=== PATIENT | female | born 1995 | race Caucasian/White ===

== ENCOUNTER 2020-11-09 08:49 | Outpatient (REF) | payer OTHER, SELFPAY ==
[2020-11-09 09:47] LABS: MANUAL DIFF FLAG NO
[2020-11-09 09:52] LABS: Basophils Absolute Auto 0.1 X10*3/uL (0.0-0.2); Basophils Percent Auto 0.8 % (0-2); Eosinophils Absolute Auto 0.2 X10*3/uL (0.0-0.4); Eosinophils Percent Auto 2.2 % (0-4); Hematocrit 39.8 % (37-47); Hemoglobin 12.1 g/dl (12.0-16.0); Imm Gran Abs Auto 0.01 X10*3/uL (0.00-0.03); Imm Gran Pct Auto 0.1 % (0.0-0.4); Lymphocytes Absolute Auto 2.4 X10*3/uL (1.2-4.9); Lymphocytes Percent Auto 32.1 % (20-40); Mean Corpuscular HGB Conc 30.4 g/dl (31.0-35.0); Mean Corpuscular Hemoglobin 26.7 pg (27.0-33.0); Mean Corpuscular Volume 87.9 fL (80-98); Mean Platelet Volume 9.4 fL (9.4-12.3); Monocytes Absolute Auto 0.7 X10*3/uL (0.1-1.2); Monocytes Percent Auto 9.7 % (2-11); Neutrophils Absolute Auto 4.2 X10*3/uL (2.0-8.3); Neutrophils Percent Auto 55.1 % (45-73); Platelet Count 412 X10*3/uL (160-400); Red Blood Count 4.53 X10*6/uL (4.20-5.50); Red Cell Distribution Width 13.3 % (11.0-16.0); White Blood Count 7.6 X10*3/uL (4.8-10.8)
[2020-11-09 10:22] LABS: Alanine Aminotransferase 9 U/L (0-31); Albumin Level 3.5 g/dL (3.5-5.0); Alkaline Phosphatase 46 U/L (39-117); Anion Gap 12 (12-20); Aspartate Amino Transferase 16 U/L (5-31); Bilirubin Direct < 0.2 mg/dL (0.0-0.5); Bilirubin Total 0.3 mg/dL (0.0-1.0); Blood Urea Nitrogen 14 mg/dL (9-16); Carbon Dioxide 28 mmol/L (22-29); Chloride 104 mmol/L (96-108); Estimated Glomerular Filt Rate > 60; Glucose Random 101 mg/dL (60-115); Potassium 4.8 mmol/L (3.3-5.1); Sodium 139 mmol/L (135-145); Total Protein 6.1 g/dL (6.5-8.0)
== END 2020-11-09 08:50 | disposition home or self-care (01) ==
LOC: HO.LAB 08:49
PROVIDERS: Visit Provider Internal Medicine
DX: K50.10 Crohn's disease of large intestine without complications (principal)
CPT/HCPCS: 36415; 80051; 80076; 82565; 82947; 84520; 85025

== ENCOUNTER 2023-08-14 06:26 | Day surgery (SDC) | payer OTHER, SELFPAY ==
[2023-08-12 10:14] VITALS: BMI 24.8
--- NOTE | 2023-08-13 08:19 | P.CONAN_ITS ---
Documented by User: Najma Bosch NP 08/13/23 08:19 HPI - Anesthesia Eval Consult details Narrative: 28yo F for Colonoscopy [facility] Past Medical History Medical History (Updated 08/12/23 @ 10:15 by Lissette Short RN) Iron deficiency anemia Crohn's colitis Surgical History Surgical History (Updated 08/12/23 @ 10:15 by Lissette Short RN) H/O colonoscopy Social History Social History Patient Tobacco Use Status: Never used Tobacco Are you DNR?: No Advance Directives: No Advance Directives Information Provided: Yes Patient : No FDLMP: 2 weeks ago Meds Allergies Allergy/AdvReac Type Severity Reaction Status Date / Time No Known Allergies Allergy Unverified 08/10/23 23:38 Home Medications Medication Instructions Recorded Confirmed Last Taken Type balsalazide 750 mg capsule 750 mg PO BID 08/12/23 08/12/23 Unknown History cyanocobalamin (vitamin B-12) 1,000 mcg PO DAILY 08/12/23 08/12/23 Unknown History 1,000 mcg tablet (Vitamin B-12) ferrous sulfate 325 mg (65 mg 325 mg PO DAILY 08/12/23 08/12/23 08/07/23 History iron) tablet norgestimate-ethinyl estradiol 1 tab PO DAILY 08/12/23 08/12/23 Unknown History 0.18 mg/0.215mg/0.25mg-35 mcg(28)tablet (Tri-Estarylla) Exam Height,Weight and Vital Signs: Height 5 ft 5 in Weight 67.585 kg Assessment and Plan Assessment Anesthesia Assessment: Chart Reviewed Documented by User: Sorin Regan MD 08/14/23 07:34 [facility] Past Medical History Medical History (Updated 08/12/23 @ 10:15 by Lissette Short RN) Iron deficiency anemia Crohn's colitis Patient : No Family History Family history of problems with anesthesia: No Surgical History Surgical History (Updated 08/12/23 @ 10:15 by Lissette Short RN) H/O colonoscopy History of Problems with Anesthesia: No Social History Social History Patient Tobacco Use Status: Never used Tobacco Are you DNR?: No Advance Directives: No Advance Directives Information Provided: Yes Patient : No FDLMP: 2 weeks ago Meds Allergies Allergy/AdvReac Type Severity Reaction Status Date / Time No Known Allergies Allergy Unverified 08/10/23 23:38 Home Medications Medication Instructions Recorded Confirmed Last Taken Type balsalazide 750 mg capsule 750 mg PO BID 08/12/23 08/12/23 Unknown History cyanocobalamin (vitamin B-12) 1,000 mcg PO DAILY 08/12/23 08/12/23 Unknown History 1,000 mcg tablet (Vitamin B-12) ferrous sulfate 325 mg (65 mg 325 mg PO DAILY 08/12/23 08/12/23 08/07/23 History iron) tablet norgestimate-ethinyl estradiol 1 tab PO DAILY 08/12/23 08/12/23 Unknown History 0.18 mg/0.215mg/0.25mg-35 mcg(28)tablet (Tri-Estarylla) Exam Airway Mallampati Class: I TM Dist: >3cm Neck ROM: Full Loose/Missing/Broken Teeth: No Heart: ok Lungs: ok Assessment and Plan Assessment Anesthesia Assessment: Anesthesia Plan Discussed Final Anesthetic Review Family History of Problems with Anesthesia: No History of Problems with Anesthesia: No NPO: Yes ASA Class: II Final Preanesthetic Review: No Changes in Pt Med Stat, Meds/Allgs Chart Reviewed, Consent Obtained/Reviewed and Anes Risks/Benef Reviewed Patient Risk: Low Procedure Risk: Low Anesthetic Plan Anesthetic Plan: MAC: and Agree w/ Assess. and Plan Disposition: Standard PACU
[2023-08-14 07:07] VITALS: BP 121/85; PULSE 102; RESP 20; TEMP 36.1; O2SAT 98
[2023-08-14 07:15] LABS: UPreg QC Valid YES; Urine Pregnancy NEGATIVE (NEGATIVE)
[2023-08-14] MEDS: Lactated Ringers 1,000 ML 100 ML IVCONT (07:16)
[2023-08-14 07:25] VITALS: BMI 25.0
[2023-08-14 08:23] VITALS: BP 100/61; PULSE 75; RESP 18; TEMP 36.4; O2SAT 97
--- NOTE | 2023-08-14 08:27 | P.BOP_ITS ---
Brief Operative Note Date of Service: 08/14/23 Pre-op diagnosis: Crohn's disease, screening Post-op diagnosis: other (Ileitis, R/O Dysplasia) Procedure: Colonoscopy to the cecum and TI with biopsies Surgeon: Blanco Frank MD Anesthesia: MAC Was an Baker Operator Automatic used for this Procedure?: No Estimated blood loss (mL): 2.0 Pathology: other (A. Ileocecal valve B. Ascending colon C. Transverse colon D. Descending colon E. Sigmoid colon F. Rectum) Condition: stable Disposition: PACU
[2023-08-14 08:49] VITALS: BP 122/71; PULSE 79; RESP 18; TEMP 36.4; O2SAT 98
--- NOTE | 2023-08-14 09:33 | OP_ITS ---
In discussing things with the patient after the procedure she does describe some obstructive symptoms after eating things like raw broccoli and other high residue foods. I advised her that is due to the findings of the ileitis and some stenosis of the ICV. She otherwise has no GI symptoms. She will continue to avoid those types of foods. We discussed the possibility of switching to Pentasa rather than Balsalazide, but for now she will continue the Balsalazide since she otherwise feels well.. If things worsen we would want to go to a biologic agent, although she wasn't too eager about that given that she may want to become in the next 1 to 2 years. We will see her in the office and review further. DATE OF SERVICE: 08/14/2023 SURGEON: Blanco Frank MD INDICATIONS: The patient presents for followup of underlying history of Crohn's disease and colorectal cancer screening. Full consent has been obtained from her for this, including risks of bleeding and perforation. PREOPERATIVE DIAGNOSIS: Crohn's disease. POSTOPERATIVE DIAGNOSIS: Crohn's disease, ileitis, mild stenosis of ileocecal valve, rule out dysplasia. PROCEDURE PERFORMED: Colonoscopy to the cecum and terminal ileum with biopsies. ESTIMATED BLOOD LOSS: COMPLICATIONS: ANESTHESIA: Monitored anesthesia care. ASSISTANTS: SPECIMENS: DESCRIPTION OF PROCEDURE: The patient was placed in the left lateral decubitus position. The digital rectal exam revealed no abnormalities, including no perianal disease from the Crohn's. The Olympus video pediatric colonoscope was entered into the rectum and advanced easily to the cecum. Once in the cecum, I did identify cecal pouch with appendiceal orifice. The ileocecal valve appeared somewhat deformed and somewhat stenotic. There were some ulcerations on the ileal mucosa of the ileocecal valve. I was able to visualize into the distal ileum and visualized ulcerations as well. I could not pass the scope into the ileum. Biopsies were obtained on the ileal portion of the ileocecal valve. The cecal mucosa appeared normal. The scope was then slowly withdrawn assessing all mucosal surfaces carefully. Preparation was excellent. I did not visualize any sign of colitis, polyps, nor angiodysplasia. Multiple random biopsies were obtained in the ascending colon, transverse colon, descending colon, sigmoid colon and rectum. In the rectum, scope was retroflexed visualizing no inflammation nor pathology. There were no appreciable hemorrhoids noted. The scope was straightened and withdrawn from the patient. She tolerated the procedure well and was returned to the recovery area in stable condition. IMPRESSION: 1. Crohn's disease involving terminal ileum and ileocecal valve. 2. Rule out dysplasia. PLAN: The results of the biopsies will be checked. At this point, she has been doing well and asymptomatic on a regimen of balsalazide 750 mg b.i.d. When she was diagnosed 10 years ago, she did not have any small bowel involvement. I would recommend a repeat colonoscopy in 5 years. She will be seen in the spring for a followup visit, but will call sooner as needed. At this point since she is asymptomatic, I would hold off on changing her treatment, but clearly if she begins having any active symptoms, then we may need to consider changing her to something such as Pentasa or even 1 of the biologic agents depending upon her clinical course. She was advised to avoid all aspirin and NSAIDs long-term. MD MALLORIE Sorensen/ARASH / [id number] MTDWhit
== END 2023-08-14 09:09 | disposition home or self-care (01) ==
PROVIDERS: Nurse Practitioner; PCP Internal Medicine; Visit Provider Internal Medicine
PROC: 0DJD8ZZ Inspection of Lower Intestinal Tract, Via Natural or Artificial Opening Endoscopic (ICD-10-PCS; CPT 45378; principal; 2023-08-14 07:30)
DX: Z12.11 Encounter for screening for malignant neoplasm of colon (principal); K50.10 Crohn's disease of large intestine without complications; K52.9 Noninfective gastroenteritis and colitis, unspecified; K56.699 Other intestinal obstruction unspecified as to partial versus complete obstruction; D50.9 Iron deficiency anemia, unspecified; Z79.899 Other long term (current) drug therapy
CPT/HCPCS: 45380; 81025; 88305; J2704

== ENCOUNTER 2023-08-21 09:51 | Outpatient (REF) | payer OTHER, SELFPAY ==
[2023-08-21 10:12] LABS: MANUAL DIFF FLAG NO
[2023-08-21 11:10] LABS: Basophils Absolute Auto 0.1 X10*3/uL (0.0-0.2); Basophils Percent Auto 0.8 % (0-2); Eosinophils Absolute Auto 0.3 X10*3/uL (0.0-0.4); Eosinophils Percent Auto 4.2 % (0-4); Hemoglobin 14.5 g/dl (12.0-16.0); Imm Gran Abs Auto 0.02 X10*3/uL (0.00-0.03); Imm Gran Pct Auto 0.3 % (0.0-0.4); Lymphocytes Absolute Auto 2.3 X10*3/uL (1.2-4.9); Lymphocytes Percent Auto 28.8 % (20-40); Mean Corpuscular HGB Conc 32.2 g/dl (31.0-35.0); Mean Corpuscular Hemoglobin 29.5 pg (27.0-33.0); Mean Corpuscular Volume 91.6 fL (80.0-98.0); Mean Platelet Volume 9.3 fL (9.4-12.3); Monocytes Absolute Auto 0.6 X10*3/uL (0.1-1.2); Monocytes Percent Auto 7.4 % (2-11); Neutrophils Absolute Auto 4.7 x10*3/uL (2.0-8.3); Neutrophils Percent Auto 58.5 % (45-73); Platelet Count 382 X10*3/uL (160-400); Red Blood Count 4.91 X10*6/uL (4.20-5.50); Red Cell Distribution Width 12.9 % (11.0-16.0); White Blood Count 7.9 X10*3/uL (4.8-10.8)
[2023-08-21 11:47] LABS: Alanine Aminotransferase 11 U/L (0-31); Albumin Level 3.5 g/dL (3.5-5.0); Alkaline Phosphatase 53 U/L (39-117); Anion Gap 11 (12-20); Aspartate Amino Transferase 14 U/L (5-31); Bilirubin Direct 0.1 mg/dL (0.0-0.5); Bilirubin Total 0.3 mg/dL (0.0-1.0); Blood Urea Nitrogen 14 mg/dL (9-16); C Reactive Protein 1.86 mg/dL (< or = 0.50); Calcium 9.3 mg/dL (8.4-10.2); Carbon Dioxide 28 mmol/L (22-29); Chloride 106 mmol/L (96-108); Erythrocyte Sedimentation Rate 6 MM/HR (0-20); Estimated Glomerular Filt Rate > 60; Glucose Random 90 mg/dL (60-115); Iron 47 mcg/dL (30-160); Percent Iron Saturation 14 % (15-50); Potassium 4.4 mmol/L (3.3-5.1); Sodium 141 mmol/L (135-145); Total Iron Binding Capacity 335 mcg/dL (228-428); Total Protein 6.5 g/dL (6.5-8.0); Unsaturated Iron Binding 288 ug/dL
[2023-08-21 12:01] LABS: HBS Num1 1.32 mIU/mL (0-7.99); HBsAGNum1 0.29 S/CO (0.00-0.99); Hepatitis B Core Antibody Nonreactive (Nonreactive); Hepatitis B Surface Antigen Negative (Negative); ~Hepatitis B Surface Antibody NONREACTIVE (Nonreactive)
[2023-08-21 12:07] LABS: Ferritin 25 ng/mL (10-122)
[2023-08-21 12:18] LABS: Folate 9.3 ng/mL (> or = 4.0)
[2023-08-22 14:33] LABS: Vitamin B12 899 pg/mL (200-900)
[2023-08-23 21:28] LABS: TS Negative Control Passed; TS Panel A 0; TS Panel B 0; TS Positive Control Passed; TSpotTB Negative (Negative)
== END 2023-08-21 09:52 | disposition home or self-care (01) ==
LOC: HO.LAB 09:51
PROVIDERS: PCP Internal Medicine; Visit Provider Internal Medicine
DX: K50.812 Crohn's disease of both small and large intestine with intestinal obstruction (principal)
CPT/HCPCS: 36415; 80048; 80076; 81335; 82607; 82728; 82746; 83540; 85025; 85652; 86140; 86481; 86704; 86706; 87340

== ENCOUNTER 2023-09-18 09:06 | Outpatient (REF) | payer OTHER, SELFPAY | END 2023-09-18 09:07 | disposition home or self-care (01) | LOC: HO.MRI 09:06 | PROVIDERS: PCP Internal Medicine; Visit Provider Internal Medicine | DX: Z13.89 Encounter for screening for other disorder (principal) ==

== ENCOUNTER 2024-02-26 07:42 | Outpatient (REF) | payer OTHER, SELFPAY ==
--- NOTE | ~2024-02-26 | FL_ITS ---
EXAMINATION: XR UPPER GI SERIES WITH SMALL BOWEL EXAMINATION: XR FLUOROSCOPY UPPER GI WITH AIR CLINICAL INFORMATION: Crohn's disease. Narrowing of the ileocecal valve on colonoscopy. COMPARISON: None TECHNIQUE: Fluoroscopic air contrast upper GI examination was performed utilizing standard techniques with thin and thick barium and effervescent granules. Numerous spot images were obtained. FINDINGS: Upper GI: Dual and single contrast images of the esophagus demonstrate normal caliber, contour, and mucosal pattern. No evidence of stricture, mass, or ulcerations identified. Esophageal peristalsis was normal. No evidence of hiatus hernia identified. No significant gastroesophageal reflux was seen during the course of the examination and on reflux views. Dual contrast and single contrast images of the stomach demonstrated a normal contour. There are a few oval and round filling defects along the greater curve in the proximal antrum, suggesting hyperplastic polyps. There is a mildly thickened appearance of the gastric rugal folds that may suggest gastritis. Antral folds also appear mildly thickened. No masses or ulcerations are seen. Contrast freely passed into the gastric antrum and duodenal bulb without delay. Single and air-contrast images of the duodenal bulb demonstrate no abnormality. No malrotation. The duodenal sweep has a normal appearance, course, and mucosal fold appearance. Small Bowel Series: Industrial Staff Nurse view demonstrates no abnormally dilated loops of bowel. There is a normal amount of fecal material in the colon which is nondilated. No organomegaly. No abnormal calcifications. SI joints appear grossly normal as does the lumbar spine and osseous structures. Post contrast small bowel series demonstrates normal duodenum, and normal appearance of the jejunum. Within the mid small bowel there is a transverse loop of bowel with probable mild cobblestoning and several antimesenteric diverticula (RF 1-14, image 45). The terminal ileum demonstrates irregular mucosal appearance and a short segment high-grade stricture into the ileocecal valve (RF 1-14, image 39; RF 1-15, image 79; RF 1-2, image 11) Contrast is observed in the right colon after 30 minutes. FLUOROSCOPY TIME: 4 minutes 40 seconds Number of Spot Images: 11 Number of Cine: 14 DOSE AREA PRODUCT: [id number] uGy-m2 (microgray-meter squared) FL/FL upper GI w air w SBFT IMPRESSION: 1. Mildly thickened appearance of the gastric rugal folds, which may suggest gastritis. A few hyperplastic polyps suspected as well. 2. Abnormal small bowel series. Suspect short segment high-grade stricture in the most terminal ileum into the ileocecal valve. The mucosa immediately before this appears irregular (possible active Crohn's) with a less severe suspected stricture. 3. A transverse loop of mid small bowel/ileum demonstrates numerous antimesenteric diverticula and irregular mucosal pattern with possible mild cobblestoning. Cannot exclude active Crohn's disease. 4. Contrast is observed in the right colon after 30 minutes. This procedure was performed by Gabino Khoury PA-C, and supervised by Dr. Machado
== END 2024-02-26 07:43 | disposition home or self-care (01) ==
LOC: HO.XRAY 07:42
PROVIDERS: PCP Internal Medicine; Visit Provider Internal Medicine
DX: K50.80 Crohn's disease of both small and large intestine without complications (principal)
CPT/HCPCS: 74246; 74248

== ENCOUNTER → 2024-02-26 07:44 | Outpatient (BNV) | payer OTHER, SELFPAY | PROVIDERS: PCP Internal Medicine; Visit Provider Physician Assistant Surgical | DX: K50.90 Crohn's disease, unspecified, without complications (principal) | CPT/HCPCS: 74246; 74248 ==

== ENCOUNTER 2025-02-15 07:17 | Outpatient (REF) | payer OTHER, SELFPAY ==
--- NOTE | ~2025-02-15 | CT_ITS ---
CLINICAL HISTORY: CROHNS DISEASE OF BOTH SMALL LARGE INTESTINE,COMPARE TO 2023 CT abdomen and pelvis with contrast Comparison: None provided Findings: No consolidation or effusion. The gallbladder and solid organs are within normal limits. No renal stones. No bowel obstruction, pneumoperitoneum, or pneumatosis. There is moderate thickening of the terminal ileum. Moderate thickening of a small bowel loop within the right hemiabdomen posteriorly (axial image 132). Fluid throughout the colon is present. There are multiple mildly prominent subcentimeter mesenteric lymph nodes. Trace free fluid in the pelvis is present. Normal appendix. The bones are intact. IMPRESSION: 1. Multifocal Crohn's disease involving the small bowel as described above. Reactive mesenteric adenopathy. This document has been electronically signed by: Wesley Carroll MD on 02/15/2025 15:40:16
--- OUTSIDE RECORDS SUMMARY | 2025-02-15 07:20 | XMS_ITS | Encounter Summary ---
Author Organization [facility] Address [address] [place] [address] Phone Care Team Providers Care Industrial Custodian Name Role Phone Unavailable Primary Care Provider Unavailabl e Encounter Details Date Type Department Care Team (Late st Contact Info) Description 06/09/2013 Documentation [facility] [place] Family Medicine [address] [place] [address] Family Medicine, Physician [place] [address] Social History Tobacco Use Types Packs/Day Years Used Date Smoking Tobacco: Never Assessed Comments Unknown Sex and Gender Information Value Date Recorded Sex Assigned at Not on file Legal Sex Female 4:52 PM EDT Gender Identity Not on file Sexual Orientation Not on file documented as of this encounter Plan of Treatment Not on file documented as of this encounter Visit Diagnoses Not on filedocumented in this encounter
[2025-02-15] MEDS: iohexoL 350 MG/ML 100 ML INFUS..BTL 85 ML IV (09:10)
[2025-02-15] MEDS: Sorbitol/Mannit/Xanth Imaging 500 ML LIQUID 1500 ML PO (09:11)
== END 2025-02-15 07:18 | disposition home or self-care (01) ==
LOC: HO.CT 07:17
PROVIDERS: PCP Internal Medicine; Visit Provider Internal Medicine
DX: K50.812 Crohn's disease of both small and large intestine with intestinal obstruction (principal)
CPT/HCPCS: 74177; Q9967

== ENCOUNTER → 2025-02-15 07:22 | Outpatient (BNV) | payer OTHER, SELFPAY | PROVIDERS: PCP Internal Medicine; Visit Provider Radiology Diagnostic Radiology | DX: K50.00 Crohn's disease of small intestine without complications (principal); I88.0 Nonspecific mesenteric lymphadenitis | CPT/HCPCS: 74177 ==